=== PATIENT | male | born 1990 | race Two or more races ===

== ENCOUNTER 2020-08-19 11:03 | Inpatient (IN) | payer OTHER ==
[~2020-08-19] VITALS: Ht 172.7 cm; Wt 94.9 kg
[2020-08-19] MEDS ORDERED: 0.9% SODIUM CHLORIDE 10 ML SYRINGE IVP PRN (13:30)
[2020-08-19 14:06] LABS: BASOPHILS % (AUTO) 1.1 % (0.0-2.0); HEMATOCRIT 47.6 % (41-53); HEMOGLOBIN 15.6 g/dL (13.5-17.5); LYMPHOCYTES # (AUTO) 2.1 K/uL (1.0-4.8); LYMPHOCYTES % (AUTO) 28.1 % (22.0-44.0); MEAN CORPUSCULAR HEMOGLOBIN 28.4 pg (26.0-34.0); MEAN CORPUSCULAR HGB CONC 32.8 G/dL (31.0-37.0); MEAN CORPUSCULAR VOLUME 87 fL (80-100); MONOCYTES # (AUTO) 0.6 K/uL (0.1-1.0); MONOCYTES % (AUTO) 8.5 % (2.0-9.0); NEUTROPHILS # (AUTO) 4.3 K/uL (1.8-7.7); NEUTROPHILS % (AUTO) 57.3 % (40.0-70.0); PLATELET COUNT (AUTO) 283 K/uL (150-450); RED BLOOD CELL COUNT(AUTO) 5.49 MIL/uL (4.50-5.90); RED CELL DISTRIBUTION WIDTH 13.6 % (11.5-14.5)
[2020-08-19 14:19] LABS: ANION GAP 7 mmol/L (8-16); CARBON DIOXIDE 31 mmol/L (22-29); CHLORIDE 101 mmol/L (98-107); CREATININE 1.16 mg/dL (0.60-1.30); GLOMERULAR FILTR. RATE CALC > 60 mL/min (>60); GLUCOSE,RANDOM 138 mg/dL (70-110); POTASSIUM 3.4 mmol/L (3.5-5.1); SODIUM SERUM 139 mmol/L (136-145); UREA NITROGEN, BLOOD 11 mg/dL (7-18)
[2020-08-19 14:24] LABS: ALANINE AMINOTRANSFERASE 140 U/L (12-78); ALBUMIN 4.1 g/dL (3.4-5.0); ALKALINE PHOSPHATASE 122 U/L (46-116); ASPARTATE AMINOTRANSFERASE 42 U/L (15-37); BILIRUBIN,TOTAL 0.6 mg/dL (0.1-1.0); TOTAL PROTEIN, SERUM 7.9 g/dL (6.4-8.2)
[2020-08-19 14:28] LABS: LACTIC ACID 1.4 mmol/L (0.4-2.0)
[2020-08-19] MEDS ORDERED: POTASSIUM CHLORIDE 20 MEQ ER TABLET PO PRN (14:45)
[2020-08-19] MEDS ORDERED: MAGNESIUM HYDROXIDE SUSPENSION 30 ML UDCUP PO PRN (14:45)
[2020-08-19] MEDS ORDERED: POTASSIUM CHL 10 MEQ/WATER 50 ML IV PRN (14:45)
[2020-08-19] MEDS ORDERED: ACETAMINOPHEN 325 MG TABLET PO PRN (14:45)
[2020-08-19] MEDS ORDERED: CloNIDine HCL 0.1 MG TABLET PO PRN (14:45)
[2020-08-19] MEDS: AmLODIPine BESYLATE 5 MG TABLET PO SCH (15:26)
[2020-08-19 16:12] LABS: COVID AG,FIA SOURCE NASOPHARYNGEAL
[2020-08-19 16:57] LABS: INFLUENZA TYPE A NEGATIVE FOR TYPE A (NEGATIVE); INFLUENZA TYPE B NEGATIVE FOR TYPE B (NEGATIVE)
[2020-08-19 17:23] LABS: APPEARANCE,URINE CLOUDY (CLEAR); BILIRUBIN,URINE NEGATIVE (NEGATIVE); GLUCOSE, URINE (UA) NEGATIVE (NEGATIVE); KETONES,URINE NEGATIVE (NEGATIVE); LEUKOCYTE ESTERASE ,URINE NEGATIVE (NEGATIVE); NITRATE,URINE NEGATIVE (NEGATIVE); OCCULT BLOOD,URINE NEGATIVE (NEGATIVE); PH,URINE 6.5 (5.0-8.0); PROTEIN,URINE TRACE (NEGATIVE)
[2020-08-19 17:38] LABS: AMPHET/METH SCREEN,URINE NEGATIVE (NEGATIVE); BARBITURATE SCREEN, URINE NEGATIVE (NEGATIVE); BENZODIAZEPINES SCREEN,URINE NEGATIVE (NEGATIVE); CANNABINOID SCREEN,URINE POSITIVE (NEGATIVE); COCAINE SCREEN,URINE NEGATIVE (NEGATIVE); METHADONE SCREEN, URINE NEGATIVE (NEGATIVE); OPIATE SCREEN,URINE NEGATIVE (NEGATIVE)
[2020-08-19 17:45] LABS: PHENCYCLIDINE SCREEN,URINE NEGATIVE (NEGATIVE)
[2020-08-19 21:28] VITALS: BP 164/95
[2020-08-19 22:00] VITALS: BP 150/89
[2020-08-20] MEDS: AmLODIPine BESYLATE 5 MG TABLET PO SCH (08:05)
[2020-08-20] MEDS: FAMOTIDINE 20 MG TABLET PO SCH (08:22)
[2020-08-20 08:58] VITALS: BP 137/80
[2020-08-20] MEDS ORDERED: AmLODIPine BESYLATE 5 MG TABLET PO SCH (09:00)
[2020-08-20] MEDS ORDERED: AmLODIPine BESYLATE 10 MG TABLET PO SCH (13:58)
[2020-08-20 19:00] VITALS: BP_SYST 130; BP_SYST 149; BP_DIAS 72; BP_DIAS 80
[2020-08-21 08:44] VITALS: BP 156/89
[2020-08-21] MEDS: AmLODIPine BESYLATE 10 MG TABLET PO SCH (08:58)
[2020-08-21] MEDS: FAMOTIDINE 20 MG TABLET PO SCH (08:58)
[2020-08-21 12:48] LABS: ALANINE AMINOTRANSFERASE 78 U/L (12-78); ALBUMIN 3.5 g/dL (3.4-5.0); ALKALINE PHOSPHATASE 115 U/L (46-116); ANION GAP 7 mmol/L (8-16); ASPARTATE AMINOTRANSFERASE 18 U/L (15-37); BILIRUBIN,TOTAL 0.4 mg/dL (0.1-1.0); CALCIUM, TOTAL 9.1 mg/dL (8.8-10.5); CARBON DIOXIDE 27 mmol/L (22-29); CHLORIDE 103 mmol/L (98-107); CREATININE 0.88 mg/dL (0.60-1.30); GLOMERULAR FILTR. RATE CALC > 60 mL/min (>60); GLUCOSE,RANDOM 98 mg/dL (70-110); SODIUM SERUM 137 mmol/L (136-145); TOTAL PROTEIN, SERUM 7.3 g/dL (6.4-8.2); UREA NITROGEN, BLOOD 11 mg/dL (7-18)
[2020-08-21 21:14] VITALS: BP 140/75
[2020-08-22 09:52] VITALS: BP 159/99
[2020-08-22] MEDS: FAMOTIDINE 20 MG TABLET PO SCH (09:52)
[2020-08-22] MEDS: AmLODIPine BESYLATE 10 MG TABLET PO SCH (09:53)
[2020-08-22] MEDS ORDERED: AMLO-258 PO (11:16)
[2020-08-22] MEDS ORDERED: ACET-2865 PO (11:17)
[2020-08-22] MEDS ORDERED: MOM30 PO (11:18)
[2020-08-22 19:48] VITALS: BP 139/87
[2020-08-23 04:15] VITALS: BP 141/90
== END 2020-08-23 06:30 | DRG 951 ==
LOC: EMS 11:03 → 6S 14:38
PROVIDERS: ADMIT Internal Medicine; ATTEND Internal Medicine
DX: Z20.828 Contact with and (suspected) exposure to other viral communicable diseases (principal); I10 Essential (primary) hypertension; E87.6 Hypokalemia; R79.89 Other specified abnormal findings of blood chemistry; E66.3 Overweight; Z68.31 Body mass index [BMI] 31.0-31.9, adult; K75.81 Nonalcoholic steatohepatitis (NASH); R94.5 Abnormal results of liver function studies
CPT/HCPCS: 76700; 83605; 84132; 85379; 87426; 87804; 93005; 36415-L1; 36415-TC; 71045-TC; 81003-TC; U0003